=== PATIENT | male | born 1990 | race Caucasian/White ===

== ENCOUNTER 2024-12-17 00:40 | Emergency (ER) | payer OTHER ==
[2024-12-17] MEDS: Lidocaine 1% 10 ML MDV INJECT ONE (00:58)
[2024-12-17] MEDS: Ondansetron 4 MG Tab.DIS PO ONE (01:07)
[2024-12-17] MEDS: Diphtheria,Pertussis(Acell),Tetanus Vaccine 0.5 ML Syringe IM ONE (01:19)
== END 2024-12-17 01:32 | disposition home or self-care (01) ==
LOC: VM.ED 00:40
DX: S61.214A Laceration without foreign body of right ring finger without damage to nail, initial encounter (principal); S61.215A Laceration without foreign body of left ring finger without damage to nail, initial encounter; Z23 Encounter for immunization; W25.XXXA Contact with sharp glass, initial encounter
CPT/HCPCS: 12001; 90471; 90715; 99282-25; 99283; A9270-GY; J2003